=== PATIENT | male | born 1990 | race Caucasian/White ===

== ENCOUNTER → 2018-06-14 17:39 | Outpatient (CLI) | payer OTHER, SELFPAY ==
--- NOTE | 2018-06-14 17:44 | MRI_ITS ---
STUDY: MRI BRAIN WITH AND WITHOUT CONTRAST (ATTENTION INTERNAL AUDITORY CANALS - I.A.C.'s) REASON FOR EXAM: Male, 27 years old. Bilateral tinnitus. TECHNIQUE: Standardized multiplanar fat and water weighted pulse sequences were obtained. 15 IV Dotarem was administered for the contrast portion of the examination. COMPARISON: None. FINDINGS: Normal bilateral temporal bones. Normal bilateral internal auditory canals. There is no demonstrated intracanalicular or cisternal vestibular schwannoma (acoustic neuroma). There is no enhancement of the bilateral VIIth or VIIIth cranial nerves. Normal bilateral cochlea, vestibules and semicircular canals. Normal size of the ventricles and extra-axial spaces for the patient's age. Normal white matter tracts of the supratentorial brain. Normal bilateral basal ganglia. Normal thalami. Normal flow voids within the major intracranial circulation suggesting patency by spin echo criteria. Normal venous enhancement. There is no enhancing intra-axial or extra-axial abnormality. There is no extra-axial fluid accumulation. Normal sella turcica, pituitary gland, infundibular stalk, optic chiasm and hypothalamus. Normal tectal plate and pineal gland. Normal midbrain, aida and medulla. Normal cerebellum. Normal basal cisterns. No demonstrated orbital abnormality, within the constraints of a routine brain study. Contracted chronic left maxillary sinusitis. Normal calvarium and skull base. Normal visualized soft tissue structures. Normal visualized upper cervical spine. MRI/Brain W/WO Contrast IMPRESSION: 1. Normal unenhanced and enhanced MRI of the bilateral internal auditory canals (I.A.C's). 2. Markedly small left maxillary sinus due to chronic left maxillary sinusitis. Electronically Signed: Edwin Hernandez MD at 10:56 EDT , Service support ,
== END ==
PROVIDERS: Family Provider Family Medicine; PCP Family Medicine; Referring Provider Otolaryngology Otolaryngology/Facial Plastic Surgery; Visit Provider Otolaryngology Otolaryngology/Facial Plastic Surgery
DX: H93.11 Tinnitus, right ear (principal)
CPT/HCPCS: 70553; A9575

== ENCOUNTER 2019-09-28 03:33 | Emergency (ER) | payer OTHER, SELFPAY ==
[2019-09-28 03:34] VITALS: BP 166/109; PULSE 88; RESP 16; TEMP 36.8; O2SAT 97; BMI 28.1
--- NOTE | 2019-09-28 03:39 | CT_ITS ---
HISTORY: RIGHT FLANK PAIN AND BURNING WITH URINATION, HX KS IN PAST TECHNIQUE: Helically acquired images were obtained of the abdomen and pelvis without oral or IV contrast. A radiation dose optimization technique was used for this scan. COMPARISON: April 17, 2011 and July 25, [address] scans of the abdomen and pelvis FINDINGS: # of images incl. paperwork: 437 LUNG BASES: clear. CT abdomen: Multiple Schmorl's node invaginations are present within the lower thoracic and lumbar spine. Brett nodes are greatest within the L1 vertebral body with both superior and inferior endplates The gallbladder is contracted. Liver, spleen, pancreas, and adrenal glands are normal. The left kidney is normal. Right hydronephrosis. Right hydroureter. Within the proximal right ureter at the level of the superior endplate of the L4 vertebral body there is a 4 x 7 mm obstructing stone. The aorta is normal. There is no intra-or extrahepatic biliary ductal dilatation. CT pelvis: No ascites is present. The prostate gland is not enlarged. The appendix is normal. Series 2 image 74. The bladder is decompressed. Bowel gas pattern is normal. CT/Abdomen/Pelvis without Cont IMPRESSION: 4 x 7 mm obstructing stone within the proximal right ureter at the level of the superior endplate of the L4 vertebral body with right hydronephrosis Individualized dose optimization techniques were used for this CT. at 0509 Reported and signed by: Sudeep Degroot MD Electronically Signed: Sudeep Degroot MD at 5:07 EDT Tel , Service support ,
[2019-09-28] MEDS: Ondansetron 4 MG/2 ML Vial IV (03:50)
[2019-09-28] MEDS: 0.9% Normal Saline 1,000 ML 1000 ML IV (03:50)
[2019-09-28] MEDS: Ketorolac 30 MG/ML Syringe IV (03:52)
[2019-09-28 03:59] LABS: Bacteria 0 SEEN /hpf (None Seen); Mucous, Urine 0 SEEN /hpf (<or=2+); Squamous Epithelial Cells - UA 0 SEEN /hpf (0-5); White Blood Cells 0 SEEN /hpf (0-5)
[2019-09-28 04:00] LABS: Absolute Lymphocyte Count 2.39 X10^3/uL (0.83-4.51); Absolute Neutrophil Count 4.2 X10^3/uL (2.0-7.7); Basophil# 0.04 X10^3/uL; Basophil% 0.5 % (0-1); Eosinophil# 0.23 X10^3/uL; Eosinophils% 3.1 % (0-5); Hematocrit 42.3 % (40-54); Hemoglobin 14.2 g/dL (13.0-16.5); Lymphocyte # 2.39 X10^3/ul (4.0); Lymphocyte % 32.1 % (19-41); Mean Corp Hgb Conc 33.6 g/dL (32-36); Mean Corpuscular Hgb 31.2 pg (27.0-32.0); Mean Platelet Vol. 9.2 fl (6.2-12.0); Monocyte% 8.1 % (0-10); NRBC Flagged by Analyzer 0 % (0-5); Neutrophil # 4.15 X10^3/uL (2.7-7.7); Neutrophil % 55.7 % (47-70); Platelet Count 233 K/mm3 (150-450); RBC Distribution Width CV 11.7 % (11.6-14.6); RBC Distribution Width SD 39.5 fl (35.1-43.9); Red Blood Count 4.55 M/mm3 (4.6-6.2); White Blood Count 7.5 K/mm3 (4.4-11.0)
[2019-09-28 04:02] LABS: Color, Urine Yellow (Yellow); Glucose, Dipstick Normal (Normal); Ketone-Dipstick Negative (Negative); Leukocyte Esterase-Dipstick Negative /ul (Negative); Nitrite-Dipstick Negative (Negative); Occult Blood-Urine 250 /ul (Negative); Protein-Dipstick 30 mg/dl (Negative); Urine Bilirubin Dipstick Negative (Negative); Urine Urobilinogen Normal (Normal)
[2019-09-28 04:07] LABS: Urine Clarity Sl Cloudy (Clear)
[2019-09-28 04:10] LABS: Red Blood Cells-Urine > 100 SEEN /hpf (0-5)
[2019-09-28 04:15] LABS: ALB/GLOB Ratio 1.2 RATIO (0.9-2.4); AST(SGOT) 23 U/L (15-37); Alanine Aminotransfer ALT/SGPT 50 U/L (16-61); Albumin, Serum 4.1 g/dL (3.2-5.0); Alkaline Phosphatase 69 U/L (45-117); Anion Gap 5 (5-15); BUN 11 mg/dL (7-18); BUN/Creat Ratio 10.9 RATIO (10-20); Calcium,Total 9.1 mg/dL (8.5-10.1); Chloride 105 mmol/L (98-107); Creatinine, Serum 1.01 mg/dL (0.70-1.30); EST Glomerular Filtration Rate 93 mL/min (>60); Est Glom Filt Rate - Afr Amer 112 mL/min (>60); Globulin 3.5 g/dL (2.2-4.2); Glucose 103 mg/dL (74-106); Potassium 4.2 mmol/L (3.5-5.1); Protein, Total 7.6 g/dL (6.4-8.2); Sodium Level 139 mmol/L (136-145)
--- NOTE | 2019-09-28 04:20 | ED.DCSUM_ITS ---
History of Present Illness Chief Complaint: Flank Pain Informant: Patient Narrative: 28-year-old male with no significant past medical history presents with concern for right flank pain. States that he has had kidney stones before in the past and this feels similar. States he has had intermittent pain over the past 4 days. States that it worsened this evening and into this morning. States it is sharp in nature. Admits to nausea with vomiting. Denies any fever or chills. Does admit to some dysuria. Past Medical History - Allergies and Home Meds Allergies/Adverse Reactions: Allergies amoxicillin Allergy (Verified 09/28/19 03:36) Rash Penicillins [PCN] Allergy (Verified 09/28/19 03:36) Rash Primary Care Physician: Neris Norton MD [Primary Care Provider] - Papito Chaves MD [STAFF PHYSICIAN] - As soon as possible Prior records reviewed: Yes Past Medical History: - - Kidney stones Surgical History: - - Lithotripsy Lives: Alone Smoking Status: Never smoker Alcohol: None Drugs: None Review of Systems General: Denies: Chills, Fever, Sweats Eyes: Denies: Visual changes - bilaterally, Diplopia ENT: Denies: Rhinorrhea, Sore throat Cardiovascular: Denies: Chest pain, Palpitations Respiratory: Denies: Dyspnea, Cough, Dyspnea on exertion Gastrointestinal: Denies: Abdominal pain, Nausea, Vomiting, Diarrhea, Melena, Hematochezia Genitourinary: Reports: Dysuria, - - Flank pain. Denies: Hematuria, Frequency Musculoskeletal: Denies: Back pain, Extremity Pain Skin: Denies: Rash, Wounds Neurological: Denies: Headache, Weakness, Numbness Physical Exam Vital Signs/Narrative: Vital Signs Temp Pulse Resp BP Pulse Ox 09/28/19 03:34 98.2 F 88 16 166/109 H 97 Inital Vital Signs reviewed: Yes General: Well nourished, Well developed, No Acute Distress Head: Normocephalic, Atraumatic Eyes: Perrl, EOMI ENT: Moist mucous membranes, No rhinorrhea Neck: Supple, Nontender Cardiovascular: Regular rate, Regular rhythm, No murmurs Respiratory: No distress, CTA bilaterally, Chest nontender Abdomen: Soft, Nondistended, Normal bowel sounds, - - Tenderness to palpation of the right flank. No evidence of hernia. : - - Normal inspection of the penis and scrotum. Back: Nontender, Normal Inspection Extremities: Nontender, No edema Skin: Normal color, No rash Neurological: Alert, Oriented x3, Cranial nerves II-XII grossly intact, Normal Strength, Normal Sensation Psychological: Normal affect, Normal Mood Diagnostic/Tx/Re-eval Clinical Impression(s) from Imaging Studies Abdomen/Pelvis CT 09/28/19 03:39 IMPRESSION: 4 x 7 mm obstructing stone within the proximal right ureter at the level of the superior endplate of the L4 vertebral body with right hydronephrosis Individualized dose optimization techniques were used for this CT. at 0509 Reported and signed by: Sudeep Degroot MD Electronically Signed: Sudeep Degroot MD at 5:07 EDT Tel , Service support , Laboratory Data 09/28/19 09/28/19 09/28/19 03:45 03:50 03:50 WBC 7.5 RBC 4.55 L Hgb 14.2 Hct 42.3 MCV 93.0 MCH 31.2 MCHC 33.6 RDW Std Deviation 39.5 RDW Coeff of Jocy 11.7 Plt Count 233 MPV 9.2 Immature Gran % (Auto) 0.500 Neut % (Auto) 55.7 Lymph % (Auto) 32.1 [place] % (Auto) 8.1 Eos % (Auto) 3.1 Baso % (Auto) 0.5 Absolute Neuts (auto) 4.2 Absolute Lymphs (auto) 2.39 Nucleated RBC % 0 Sodium 139 Potassium 4.2 Chloride 105 Carbon Dioxide 29.0 Anion Gap 5 BUN 11 Creatinine 1.01 Estim Creat Clear Calc 101.80 Est GFR (MDRD) Af Amer 112 Est GFR (MDRD) Non-Af 93 BUN/Creatinine Ratio 10.9 Glucose 103 Calcium 9.1 Total Bilirubin 0.50 AST 23 ALT 50 Alkaline Phosphatase 69 Total Protein 7.6 Albumin 4.1 Globulin 3.5 Albumin/Globulin Ratio 1.2 Urine Color Yellow Urine Clarity Sl Cloudy Urine pH 6.0 Ur Specific [place] 1.020 Urine Protein 30 H Urine Glucose (UA) Normal Urine Ketones Negative Urine Occult Blood 250 H Urine Nitrite Negative Urine Bilirubin Negative Urine Urobilinogen Normal Ur Leukocyte Esterase Negative Urine RBC > 100 SEEN Urine WBC 0 SEEN Ur Squamous Epith Cells 0 SEEN Urine Bacteria 0 SEEN Urine Mucus 0 SEEN - Medical Decision Making Patient appears well nontoxic. Lab work within normal limits. No evidence of UTI. Renal function within normal limits. CT shows evidence of a 4 x 7 obstructing stone in the right proximal ureter. Patient was given Toradol, fluids, Zofran which did resolve his pain and nausea. Will be given Zofran and pain medication for home. Urologic follow-up. Asked to return for new or worsening symptoms. Patient agreeable and discharged home in stable condition. ED Disposition - Plan for ED Patient: Disposition: Home or Assisted Living Diagnosis: Ureterolithiasis Prescriptions: Tamsulosin HCl [Flomax] 0.4 mg PO DAILY #5 cap Prescription Printed Oxycodone HCl/Acetaminophen [Percocet 5/325] 1 tab PO Q6H PRN PRN 3 Days #12 tab PRN Reason: Pain Prescription Printed Ondansetron [Zofran Odt] 4 mg PO Q8H PRN PRN #10 tab PRN Reason: Nausea Prescription Printed Referrals: Neris Norton MD [Primary Care Provider] - Papito Chaves MD [STAFF PHYSICIAN] - As soon as possible
[2019-09-28] MEDS: Morphine 4 MG/ML Syringe IV (05:20)
[2019-09-28 05:24] VITALS: BP 137/97; PULSE 65; RESP 16; O2SAT 99
== END 2019-09-28 05:33 | disposition home or self-care (01) ==
PROVIDERS: Emergency Provider Emergency Medicine; PCP Family Medicine
DX: N13.2 Hydronephrosis with renal and ureteral calculous obstruction (principal); Z79.899 Other long term (current) drug therapy; Z87.442 Personal history of urinary calculi
CPT/HCPCS: 74176; 80053; 81001; 85025; 96361; 96374; 96375; 99283; J7030; J2405

== ENCOUNTER 2019-10-10 05:58 | Day surgery (SDC) | payer OTHER, SELFPAY ==
[2019-10-10 06:25] VITALS: BP 128/96; PULSE 70; RESP 18; TEMP 36.7; O2SAT 100; BMI 27.6
[2019-10-10] MEDS: Lactated Ringers 1,000 ML 100 ML IV (06:36)
--- NOTE | 2019-10-10 07:13 | PCM.HP.STD ---
Problem List (1) Right ureteral calculus Status: Acute History of Present Illness Date of Admission: 10/10/19 Chief Complaint: Right ureteral calculi The patient is a 29 year old male with a 6 mm stone in the mid ureter on CAT scan has not passed the stone has not seen a stone still having pain off-and-on today some of the preop area and is willing to proceed with ureteroscopy and laser lithotripsy is always understand the possibility he may have passed a stone but still having pain. I offered the patient opportunity to go home and for more conservative measures to see if can pass a stone but he wants to proceed with surgical intervention. Past Medical History Allergies amoxicillin Allergy (Verified 10/02/19 14:11) Rash Penicillins [PCN] Allergy (Verified 10/02/19 14:11) Rash CILLIN'S Allergy (Uncoded 10/02/19 14:11) Rash Home Medications: Ambulatory Orders Medication Instructions Recorded Cetirizine HCl [Zyrtec] 10 mg PO DAILY 07/25/15 Ondansetron [Zofran Odt] 4 mg PO Q8H PRN PRN #10 tab 09/28/19 Tamsulosin HCl [Flomax] 0.4 mg PO DAILY #5 cap 09/28/19 Hydrocodone/Acetaminophen [[place] 1 ea PO Q4H PRN PRN 10/10/19 5-325 Tablet] Surgical History: - - Lithotripsy Smoking Status: Never smoker Tobacco Use: Non-smoker Review of Systems Constitutional: Denies: Chills, Fever, Weight Change HEENT: Denies: Head Aches, Sinus Congestion, Sinus Drainage Cardiovascular: Denies: Chest Pain, Palpitations Respiratory: Denies: Cough, Shortness of breath at rest, Sputum production Gastrointestinal: Denies: Abdominal Pain, Nausea, Vomiting Genitourinary: Denies: Dysuria Musculoskeletal: Denies: Joint Pain, Joint Tenderness Skin: Denies: Rash, Wounds Neurological: Denies: Numbness, Tingling, Focal weakness Psychiatric: Denies: Anxiety, Depression, Homicidal Ideations, Suicidal Ideations Hematologic/ Lymphatic: Denies: Easy Bruising, Easy Bleeding VTE Information - Inpt Only VTE Present on Admission: No VTE Mechan Device Prophylaxis: SCD's Patient Problems: Active and Suspected Problems Right ureteral calculus (Acute) - Physical Exam Vitals/I&O's: Vital Signs Temp Pulse Resp BP Pulse Ox 98.1 F 70 18 128/96 H 100 10/10/19 06:25 10/10/19 06:25 10/10/19 06:25 10/10/19 06:25 10/10/19 06:25 Oxygen Delivery Method Room Air Weight: 80.1 kg Body Mass Index (BMI) 27.6 General: Alert, Oriented x3, Cooperative HEENT: Atraumatic, PERRLA, EOMI, Normocephalic Neck: Supple, No JVD, Negative Carotid Bruits Lungs: Clear to auscultation, Normal air movement Cardiovascular: Regular rate, No murmurs Abdomen: Bowel Sounds Present, Soft, Non Tender Extremities: No edema, Capillary Refill Less than 3 Seconds Skin: No rashes, No breakdown Musculoskeletal: No Tenderness to Palpation of Joints or Extremities Neurological: Cranial nerves II-XII grossly intact Psych/Mental Status: Normal Affect, Appropriate Current Medications Cefazolin Sodium 2 gm/ Sodium (Chloride) 110 mls @ 150 mls/hr IV PREOP ONE Stop: 10/10/19 07:43 Lactated Ringer's () 1,000 mls @ 100 mls/hr IV .Q10H ALFREDO Last Admin: 10/10/19 06:36 Dose: 100 mls/hr Documented by: Assessment/Plan All Active Problems Right ureteral calculus (Acute) Plan to proceed with right ureteroscopy laser of stone and stent.
--- NOTE | 2019-10-10 07:14 | PCM.DC.URO ---
Discharge Diet: Light diet - advance as tolerated Discharge Activity: May not drive while taking narcotic pain medications., May Shower Call your doctor if you observe: Fever of 101 or Higher Suture Line Care: Avoid Pulling/Pushing, Avoid Pinching/Bending Instructions: Ureteral Stents Allergies/Adverse Reactions: Allergies amoxicillin Allergy (Verified 10/02/19 14:11) Rash Penicillins [PCN] Allergy (Verified 10/02/19 14:11) Rash CILLIN'S Allergy (Uncoded 10/02/19 14:11) Rash Medications to take at Discharge Cetirizine HCl [Zyrtec] 10 mg PO DAILY 07/25/15 Ondansetron [Zofran Odt] 4 mg PO Q8H PRN PRN #10 tab 09/28/19 Tamsulosin HCl [Flomax] 0.4 mg PO DAILY #5 cap 09/28/19 Hydrocodone/Acetaminophen [[place] 5-325 Tablet] 1 ea PO Q4H PRN PRN 10/10/19 Orders to be completed after discharge: CORONAVIRUS 19, VIOLETTE SCREEN Time Frame: 10/05/19, Facility: [facility], Location: Laboratory Primary Care Physician: Care Physician,No Primary [Primary Care Provider] - Test Results: Test results from this visit will be discussed in further detail at your follow-up appointment, if applicable. Please Follow Up With: Papito Chaves MD When: please call to make an appointment.
[2019-10-10] MEDS: Cefazolin 2 GM in 0.9% Normal Saline 100 ML IV (07:18)
--- NOTE | 2019-10-10 07:40 | PCM.OPRPT ---
Problem List (1) Right ureteral calculus Status: Acute Report of Operation Date of Procedure: 10/10/19 Pre-Operative Diagnosis: Right ureteral calculi Post-Operative Diagnosis: The same Surgery/Procedure Performed:: Cystoscopy, balloon dilation of the right ureter, right ureteroscopy laser lithotripsy of stone and stent placement Description of Surgical Findings:: 29-year-old male taken back to the operating room after smooth induction of general anesthesia the penis and testicles were prepped and draped in usual sterile fashion went into the bladder with a 21 [place] rigid cystourethroscope identified the right ureteral orifice advanced a wire up past the stone and then I did a balloon dilation of the distal right ureter with a 12 [place] 10 cm balloon dilator, after dilating the distal right ureter then I went over the wire with the flexible ureteroscope was able to get up to the stone pulled the wire out advance a 200 ?m laser fiber performed laser lithotripsy and a 6 mm stone in the middle ureter. The stone was broken little tiny pieces went up to the kidney no other major fragments in the kidney worked my way down the ureter but a wire up through the scope into the kidney backloaded with the cystoscope and then placed a stent up into the right kidney and left the string on the stent. Patient anesthetic was reversed bladder was drained and was taken back to PACU good condition we will see him next week to remove the stent. Type of Anesthesia:: General Drains: stent 6fr x 24cm - Admit VTE Documentation VTE Present on Admission: No VTE Mechan Device Prophylaxis: SCD's
[2019-10-10 07:51] VITALS: BP 128/96; BP 130/83; PULSE 75; RESP 18; TEMP 36.3; O2SAT 100
[2019-10-10 08:00] VITALS: BP 128/96; BP 137/95; PULSE 73; RESP 18; O2SAT 98
[2019-10-10] MEDS: Ketorolac 30 MG/ML Syringe IV (08:07)
[2019-10-10 08:15] VITALS: BP 125/91; BP 128/96; PULSE 58; RESP 18; TEMP 36.7; O2SAT 98
[2019-10-10] MEDS: oxyCODONE 5 MG Tablet PO (08:36)
[2019-10-10 09:05] VITALS: BP 128/96
--- NOTE | 2019-10-10 09:42 | SUR.PHASEII ---
Addendum entered by Payal Barnett 10/10/19 09:44: typo: note should read ... instructed verbally and in writing... Original Note: Pt's mother returned to to obtain work excuse for pt. Orders rec'd from Dr Chaves. pt's mother instructed dilip in writing that work excuse is from 10/10/2019 thru 10/21/2019.
== END 2019-10-10 09:19 | disposition home or self-care (01) ==
LOC: SDC 05:59 → AC 06:00
PROVIDERS: Referring Provider Urology; Visit Provider Urology
PROC: 0TJ98ZZ Inspection of Ureter, Via Natural or Artificial Opening Endoscopic (ICD-10-PCS; CPT 52352; principal; 2019-10-10 07:20)
DX: N20.1 Calculus of ureter (principal); R39.12 Poor urinary stream; R35.1 Nocturia; J45.909 Unspecified asthma, uncomplicated; H91.90 Unspecified hearing loss, unspecified ear; Z79.899 Other long term (current) drug therapy; Z87.442 Personal history of urinary calculi; Z87.891 Personal history of nicotine dependence
CPT/HCPCS: 00918; 52356; 76000; 87635; G2023; J7120; C1769; C2617; J2405; U0003

== ENCOUNTER → 2019-10-16 11:26 | Outpatient (CLI) | payer OTHER, SELFPAY ==
[2019-10-10 06:25] VITALS: BMI 27.6
[2019-10-16 13:32] LABS: Anion Gap 1 (5-15); BUN 16 mg/dL (7-18); BUN/Creat Ratio 14.4 RATIO (10-20); Calcium,Total 9.1 mg/dL (8.5-10.1); Chloride 107 mmol/L (98-107); Creatinine, Serum 1.11 mg/dL (0.70-1.30); EST Glomerular Filtration Rate 83 mL/min (>60); Est Glom Filt Rate - Afr Amer 101 mL/min (>60); Glucose 89 mg/dL (74-106); Potassium 4.2 mmol/L (3.5-5.1); Sodium Level 137 mmol/L (136-145); Uric Acid 5.8 mg/dL (3.5-7.2)
[2019-10-16 13:35] LABS: PTHIN 52.6 pg/mL (18.4-80.1)
== END ==
PROVIDERS: PCP Family Medicine; Referring Provider Nurse Practitioner Adult Health; Visit Provider Nurse Practitioner Adult Health
DX: N20.0 Calculus of kidney (principal)
CPT/HCPCS: 36415; 80048; 83970; 84550

== ENCOUNTER 2021-02-09 06:59 | Emergency (ER) | payer OTHER, SELFPAY ==
[2021-02-09 07:01] VITALS: BP 146/87; PULSE 87; RESP 16; TEMP 35.4; O2SAT 99; BMI 30.4
--- NOTE | 2021-02-09 07:06 | EDS_ITS ---
HPI History of Present Illness Chief Complaint: Upper Extremity Injury Informant: patient Narrative Narrative: 30-year-old male states that 2 nights ago he believes he slept differently woke up with a sore neck on the right. To help this discomfort last night he propped his arm up in abduction/posterior rotation. When he woke this morning he notes pain in the right shoulder paresthesias running down the C7-C8 dermatome region. He denies any loss of muscular function. Sensation is preserved but he notes it more of a tingling. He notes he has pain with movement of the shoulder and actually feels better going back into the same position that he was in. [facility] Medical History Kidney stones Home Medications cetirizine [Zyrtec] 10 mg PO DAILY 07/25/15 [History Last Taken 01/08/17] cyclobenzaprine 10 mg PO TID PRN #15 tablet 02/09/21 [Rx Last Taken Unknown] hydrocodone-acetaminophen 1 tab PO Q6H PRN PRN 3 Days #12 tablet 02/09/21 [Rx Last Taken Unknown] prednisone 60 mg PO DAILY #15 tablet 02/09/21 [Rx Last Taken Unknown] Allergy/AdvReac Type Severity Reaction Status Date / Time amoxicillin Allergy Rash Verified 02/09/21 06:59 Penicillins [PCN] Allergy Rash Verified 02/09/21 06:59 CILLIN'S Allergy Rash Uncoded 02/09/21 06:59 Surgical History no surgical history Social History (Updated 02/09/21 @ 07:[address] Dami López DO) current gender identity: male Smoking Status: Never smoker ROS ROS ED Constitutional Constitutional ED: Denies chills or weight loss Eyes Eyes: Denies change in vision or diplopia ENT ENT ED: Denies ear pain, rhinorrhea or sore throat Cardiovascular Cardiovascular: Denies chest pain, orthopnea, palpitations or racing heartbeat Respiratory/Chest Respiratory/Chest: Denies cough, dyspnea or orthopnea Gastrointestinal Gastrointestinal: Denies abdominal pain, diarrhea, nausea or vomiting Genitourinary Genitourinary ED: Denies dysuria, hematuria or urinary frequency Musculoskeletal Musculoskeletal: Reports neck pain and other Details: Right shoulder pain ; Denies arthralgias or myalgias Integumentary Denies abscess or rash Neurologic Neurologic: Reports paresthesias; Denies headache(s) or weakness Psychiatric Psychiatric: Denies anxiety, depression, suicidal ideation or suicidal thoughts Endocrine Endocrinology: Denies polydipsia, polyphagia or polyuria Allergic/Immunologic Allergic/Immunologic ED: Denies mouth swelling, tongue swelling or urticaria EXAM Physical Exam Const Vital Signs: 02/09/21 07:01 Temperature 95.7 F L Temperature Source Temporal Pulse Rate 87 Respiratory Rate 16 Blood Pressure 146/87 H Blood Pressure Mean 106 Pulse Ox 99 Oxygen Delivery Method Room Air Positive well nourished and well developed General Appearance ED: well developed HEENT Reports normocephalic, head/scalp atraumatic and moist mucous membranes normocephalic and atraumatic Eyes PERRL and EOMs intact bilaterally Neck no lymphadenopathy, supple and no JVD Resp normal respiratory effort and clear to auscultation bilaterally Cardio regular rate, regular rhythm and no murmurs GI normal to inspection, nondistended, normoactive bowel sounds and non-tender Palpation: soft Back/Spine no CVA tenderness and normal ROM Extremity Extremity Narrative: Patient has full range of motion albeit painful p articularly with abduction and rotation. Neurovascular intact. He has some mild tenderness over the posterior aspect the shoulder and some tenderness over the anterior aspect of the shoulder. General Extremety ED: Negative for edema General Extremity: Negative for edema Neuro oriented x3 and CN's II-XII intact bilaterally Sensorium / Orientation: alert Motor Exam: strength 5/5 throughout Psych mental status grossly normal Mood & Affect: Negative for depressed or tearful Skin no rashes or lesions noted and no wounds MDM MDM MDM Narrative Medical decision making narrative: I think this is mostly muscular and may be an early neuropraxia. I think this should do well and resolve for him. I will write for some pain medication and for muscle relaxants. Follow-up with primary care if not improving return if worsening or concerns Discharge Plan Triage Chief Complaint: Upper Extremity Injury ED Provider: Dami López Dx/Rx/DC Orders Clinical Impression: Acute pain of right shoulder, Neurapraxia of right ulnar nerve Instructions: ED Ulnar Nerve Palsy Prescriptions: New cyclobenzaprine [cyclobenzaprine] 10 MG tablet 10 mg PO TID PRN (Reason: Muscle Spasm) Qty: 15 RF: 0 hydrocodone-acetaminophen [hydrocodone-acetaminophen] 1 TABLET tablet 1 tab PO Q6H PRN PRN (Reason: Pain) 3 Days Qty: 12 RF: 0 prednisone 20 MG tablet 60 mg PO DAILY Qty: 15 RF: 0 No Action Zyrtec 10 MG capsule 10 mg PO DAILY RF: 0 Primary Care Provider: Serg Giles Referrals: Serg Giles MD [Primary Care Provider] - 1 Week if not improving Disposition Disposition: Home, Self Care
== END 2021-02-09 07:19 | disposition home or self-care (01) ==
LOC: ED 07:18
PROVIDERS: Emergency Provider Emergency Medicine; PCP Family Medicine
DX: S44.01XA Injury of ulnar nerve at upper arm level, right arm, initial encounter (principal); M25.511 Pain in right shoulder; X58.XXXA Exposure to other specified factors, initial encounter; Y93.84 Activity, sleeping; Y92.9 Unspecified place or not applicable; Y99.9 Unspecified external cause status
CPT/HCPCS: 99282

== ENCOUNTER 2021-03-22 09:25 | Emergency (ER) | payer OTHER, SELFPAY ==
[2021-03-22 09:26] VITALS: BP 164/116; PULSE 79; RESP 16; TEMP 36.4; O2SAT 100; BMI 31.3
--- NOTE | 2021-03-22 10:34 | EDS_ITS ---
HPI History of Present Illness Chief Complaint: Upper Extremity Injury Narrative Narrative: 30-year-old male with history of trapezius pain with radiation into the right upper extremity. Patient states he was diagnosed with this previously and seen in the ER. Patient states that he was supposed to follow-up with his primary care physician but has not done this. He was initially on steroids, muscle relaxers. Patient states that this did improve and last night while sleeping he slept in an awkward position and now has a symptoms again. Patient denies any trauma to the neck or right shoulder. [facility] Medical History Kidney stones Home Medications prednisone 50 mg PO QODAY 4 Days #10 tab 03/22/21 [Rx Last Taken Unknown] tizanidine [Zanaflex] 4 mg PO TID PRN #14 cap 03/22/21 [Rx Last Taken Unknown] Allergy/AdvReac Type Severity Reaction Status Date / Time amoxicillin Allergy Rash Verified 03/22/21 09:28 Penicillins [PCN] Allergy Rash Verified 03/22/21 09:28 CILLIN'S Allergy Rash Uncoded 03/22/21 09:28 Social History Smoking Status: Never smoker ROS ROS ED Constitutional Constitutional ED: Denies chills, fever(s) or sweats Eyes Eyes: Denies blurry vision or change in vision ENT ENT ED: Denies ear pain or sore throat Cardiovascular Cardiovascular: Denies chest pain, palpitations or racing heartbeat Respiratory/Chest Respiratory/Chest: Denies cough, dyspnea or sputum Gastrointestinal Gastrointestinal: Denies abdominal pain, constipation, diarrhea, nausea or vomiting Genitourinary Genitourinary ED: Denies dysuria, hematuria or urinary frequency Musculoskeletal Musculoskeletal: Reports neck pain and other Details: Right shoulder pain ; Denies arthralgias or myalgias Integumentary Denies abscess, Abrasions or rash Neurologic Neurologic: Denies headache(s), paresthesias or weakness Psychiatric Psychiatric: Denies anxiety, depression, suicidal ideation or suicidal thoughts Endocrine Endocrinology: Denies polydipsia or polyuria EXAM Physical Exam Const Vital Signs: 03/22/21 09:26 Temperature 97.6 F L Temperature Source Temporal Pulse Rate 79 Respiratory Rate 16 Blood Pressure 164/116 H Blood Pressure Mean 132 Pulse Ox 100 Oxygen Delivery Method Room Air General Appearance ED: Negative for pallor HEENT Reports normocephalic, head/scalp atraumatic and moist mucous membranes Eyes PERRL and EOMs intact bilaterally Neck no lymphadenopathy and supple Neck Narrative: No midline spinal tenderness, deformity, step-off of the cervical spine. Chest Wall inspection of chest normal and palpation of chest normal Resp normal respiratory effort and clear to auscultation bilaterally Auscultation: Negative for rales, rhonchi or wheezes Cardio regular rate and regular rhythm GI normal to inspection, nondistended, normoactive bowel sounds and non-distended Auscultation: normoactive bowel sounds Palpation: soft Narrative: Deferred Back/Spine Back/Spine Narrative: Tenderness to palpation right cervical paraspinal musculature. There is tenderness that extends into the right trapezius. Right shoulder girdle is nontender. Full range of motion of the right shoulder. Right upper extremity is neurovascular intact brisk cap refill to all 5 fingers. Extremity normal to inspection General Extremety ED: Yes edema and tenderness General Extremity: edema Neuro oriented x3 and CN's II-XII intact bilaterally Sensorium / Orientation: alert Motor Exam: strength 5/5 throughout Psych mental status grossly normal Attitude: No agitated Skin no rashes or lesions noted and no wounds General Skin Exam: Negative for jaundice or pallor Rashes: no rashes MDM MDM MDM Narrative Medical decision making narrative: Patient presenting with symptoms of cervical radiculopathy. He has had this in the past. He was previously treated from the ER but was lost to follow-up. Patient will be treated with prednisone which helped him before as well as muscle relaxers. He is given a dose of prednisone and Norflex in the ED as well as a shot of Toradol. Patient will be sent home with Zanaflex and prednisone. He is given follow-up with Dr. Louie. He is also instructed to make his appointment with his primary care physician which is on the fifth. Patient amenable to this plan and discharged home in stable con dition. Impression: 1. Cervical radiculopathy Discharge Plan Triage Chief Complaint: Upper Extremity Injury ED Provider: Yovani Coleman Dx/Rx/DC Orders Instructions: ED Radiculopathy, Cervical Prescriptions: New tizanidine [Zanaflex] 4 mg capsule 4 mg PO TID PRN (Reason: muscle spasticity) Qty: 14 RF: 0 prednisone 10 mg tablet 50 mg PO QODAY 4 Days Qty: 10 RF: 0 Primary Care Provider: Serg Giles Referrals: Serg Giles MD [Primary Care Provider] - Arnulfo Louie DO [STAFF PHYSICIAN] - As soon as possible Disposition Disposition: Home, Self Care
[2021-03-22] MEDS: predniSONE 20 MG Tablet 60 MG PO (10:37)
[2021-03-22] MEDS: Ketorolac 15 MG/ML Vial IM (10:38)
[2021-03-22] MEDS: Orphenadrine 60 MG/2 ML Ampul IM (10:40)
[2021-03-22 11:00] VITALS: BP 158/88
== END 2021-03-22 11:18 | disposition home or self-care (01) ==
LOC: ED 11:05
PROVIDERS: Emergency Provider Student in an Organized Health Care Education/Training Program; PCP Family Medicine; Visit Provider Student in an Organized Health Care Education/Training Program
DX: M54.12 Radiculopathy, cervical region (principal); Z79.899 Other long term (current) drug therapy
CPT/HCPCS: 99283